=== PATIENT | male | born 1990 | race Caucasian/White ===

== ENCOUNTER → 2022-06-02 11:11 | Outpatient (CLI) | payer BC, SELFPAY ==
[2022-06-02 12:10] LABS: COVID-19 CEPHEID 4-PLEX PCR Negative (Negative); Influenza A - CEPHEID Flu A NEGATIVE (NEGATIVE); Influenza B - CEPHEID Flu B NEGATIVE (NEGATIVE); Respiratory Syncytial Virus Negative (Negative)
== END ==
PROVIDERS: Visit Provider Student in an Organized Health Care Education/Training Program
DX: J06.9 Acute upper respiratory infection, unspecified (principal)
CPT/HCPCS: 0241U

== ENCOUNTER 2022-06-02 11:51 | Emergency (ER) | payer BC, SELFPAY ==
[2022-06-02] VITALS (8 sets, daily range): BP systolic 96–110; BP diastolic 58–68; PULSE 59–66; RESP 18; TEMP 36.6; O2SAT 97–99; BMI 22.4
--- NOTE | 2022-06-02 12:03 | DI.RAD.S_ITS ---
PROCEDURE: XR CHEST 2V INDICATIONS: SOB TECHNIQUE: 2 views of the chest were acquired. COMPARISON: None. FINDINGS: Surgical changes and devices: None. Lungs and pleura: Lungs are clear. No pleural effusions or pneumothorax. Mediastinum: Mediastinal contours are normal. Heart size is normal. Bones and chest wall: No suspicious bony abnormalities. Soft tissues appear unremarkable. IMPRESSION: No acute cardiopulmonary findings. Dictated by: Melissa Gomez M.D. on 06/02/2022 at 13:24 Approved by: Melissa Gomez M.D. on 06/02/2022 at 13:24
[2022-06-02 12:14] LABS: Add Manual Diff / Slide Review NO; Basophils Absolute Auto 100 /uL (0-100); Basophils Percent Auto 0.5 % (0-2); Eosinophils Absolute Auto 200 /uL (0-450); Eosinophils Percent Auto 1.5 % (2-4); Hematocrit 42.2 % (41-53); Lymphocytes Absolute Auto 1600 /uL (1100-4500); Lymphocytes Percent Auto 12.5 % (25-40); Mean Corpuscular HGB Conc 33.2 % (30-36); Mean Corpuscular Hemoglobin 28.6 PG (26-34); Mean Corpuscular Volume 86.1 fL (80-100); Monocytes Absolute Auto 1300 /uL (0-900); Monocytes Percent Auto 10.2 % (3-14); Neutrophils Absolute Auto 9600 /uL (1500-7000); Neutrophils Percent Auto 75.3 % (50-75); Platelet Count 350 X10^3/uL (150-400); Red Cell Distribution Width 13.3 % (11.6-14.8); White Blood Cell Count 12.8 X10^3/uL (4.5-11.0)
[2022-06-02] MEDS: LACTATED RINGERS 1,000 ML 1000 ML IV ×2 (12:15→14:18)
[2022-06-02 12:30] LABS: Alanine Aminotransferase 16 IU/L (<50); Albumin 3.9 g/dL (3.5-5.0); Albumin Globulin Ratio 1.1 (1.0-2.8); Alkaline Phosphatase 44 U/L (38-126); Aspartate Aminotransferase 18 IU/L (17-59); BUN Creatinine Ratio 9.7 (6-22); Bilirubin Total 0.5 mg/dL (0.2-1.3); Blood Urea Nitrogen 7 mg/dL (9-20); Carbon Dioxide 25 mmol/L (22-32); Chloride 104 mmol/L (98-107); Estimated Glomerular Filt Rate > 60 mL/min (>60); Globulin 3.7 g/dL (1.7-4.1); Glucose 103 mg/dL (70-100); HEMOLYSIS < 15 (0-50); Lipase 111 U/L (23-300); Magnesium 1.8 mg/dL (1.6-2.3); Potassium 3.8 mmol/L (3.4-5.1); Sodium 139 mmol/L (137-145); Total Protein 7.6 g/dL (6.3-8.2)
--- NOTE | 2022-06-02 13:53 | ED.GENADULT ---
HPI - General Adult General Chief complaint: Upper Respiratory Symptoms Stated complaint: sent by [facility] bad flu symptoms t-14 lightheaded Time Seen by Provider: 06/02/22 12:02 Source: patient Mode of arrival: Wheelchair History of Present Illness HPI narrative: 32-year-old male nonsmoker with noncontributory medical history presents at the request of the walk-in clinic after having presented earlier today for evaluation of about 2 weeks of ongoing cough which is occasionally productive of yellowish-greenish sputum. Multiple family members have had rather classic upper respiratory symptoms including nasal congestion and cough but all got better in a few days and he continues to be sick. He denies recent travel, history of blood clot or lower extremity pain or swelling. He denies any hemoptysis. When seen and evaluated at the walk-in clinic deep breath elicited cough and made him near syncopal. He was sent here for further evaluation. He denies nausea but admits to some decreased appetite. He is had no vomiting or diarrhea and denies urinary complaints such as dysuria, frequency or urgency. Related Data Previous Rx's Medication Instructions Recorded benzonatate 200 mg capsule 200 mg PO BID PRN cough #20 caps 06/02/22 doxycycline hyclate 100 mg tablet 100 mg PO BID #20 tabs 06/02/22 Allergies Allergy/AdvReac Type Severity Reaction Status Date / Time No Known Drug Allergies Allergy Unverified 06/02/22 11:20 Review of Systems Review of Systems Narrative: GENERAL: See HPI HEENT: Denies sinus pain, ear pain, sore throat, difficulty swallowing, dizziness. RESPIRATORY: See HPI CARDIOVASCULAR: Denies chest pain, palpitations, orthopnea, edema, GASTROINTESTINAL: Denies nausea, vomiting, abdominal pain, diarrhea, constipation, melena. : Denies dysuria, frequency, incontinence, hematuria, urinary retention. MUSCULOSKELETAL: denies weakness, joint pain, or bony pain SKIN: Denies rash, skin lesions, or other NEUROLOGIC: Denies weakness, headache, numbness, change in speech, confusion, seizures, incoordination. PSYCHIATRIC: No concerning psychosocial issues. 12 point review of systems is negative except for those stated above Patient History Social History Smoking Status: Never smoker Smoking Status: Never smoker alcohol intake frequency: 0-2 drinks per day Substance Use Type: does not use Exam Narrative Exam Narrative: GENERAL: [32] year old patient appears stated age. Well-developed patient, in mild distress. HEAD: Atraumatic. Normocephalic. EYES: Pupils equal round and reactive. Extraocular motions intact. No scleral icterus. No injection or drainage. ENT: Nose without bleeding, purulent drainage. Throat without erythema, tonsillar hypertrophy or exudate. Airway patent. NECK: Trachea midline. Non tender CARDIOVASCULAR: Regular rate and rhythm without murmurs, gallops, or rubs. RESPIRATORY: Clear to auscultation. Breath sounds equal bilaterally. No wheezes, rales, or rhonchi. Deep breath does elicit a rather harsh sounding cough, no increased work of breathing, use of accessories or hypoxemia GASTROINTESTINAL: Abdomen soft, non-tender, nondistended. EXTREMITIES: No edema or joint tenderness. BACK: Nontender without deformity or crepitance. No flank tenderness. NEURO: AOx3. SKIN: No rash or erythema of visible areas Initial Vital Signs Initial Vital Signs: Vital Signs Temperature 98 F 06/02/22 11:59 Pulse Rate 62 06/02/22 11:59 Respiratory Rate 18 06/02/22 11:59 Blood Pressure 96/58 L 06/02/22 11:59 Pulse Oximetry 97 06/02/22 11:59 Oxygen Delivery Method Room Air 06/02/22 11:59 Scores PERC Score Heart rate greater than or equal to 100 bpm: No Room Air O2 Sat less than 95%: No Unilateral leg swelling: No Recent trauma or surgery: No Hemoptysis: No Prior PE or DVT: No Hormone Use: No Wells' Criteria for PE Clinical signs and symptoms of DVT: No PE is #1 Dx or equally likely: No Heart rate > 100: No Immobilization at least 3 days or surg in previous 4 weeks: No History of PE or DVT: No Hemoptysis: No Malignancy w/Treatment within 6 months or palliative: No Wells' PE Score total: 0 Course Orders Ordered: ED Orders 06/02/22 12:03 XR chest 2V Stat Urinalysis and Microscopic Stat 06/02/22 12:05 Complete Blood Count AUTO DIFF Stat Comprehensive Metabolic Panel Stat Lactate (Lactic Acid) Stat Lipase Stat Magnesium Stat Lactated Ringer's (Lactated Ringers) 1,000 mls @ 1,000 mls/hr IV BOLUS ONE Stop: 06/02/22 15:12 Last Admin: 06/02/22 14:18 Dose: 1,000 mls/hr Documented By: CTS Discontinued Medications Albuterol (Albuterol Hfa Prepack) 1 box MISC SEEINSTR ONE Stop: 06/02/22 14:24 Last Admin: 06/02/22 14:31 Dose: 1 box Documented By: KOLBY Lactated Ringer's (Lactated Ringers) 1,000 mls @ 1,000 mls/hr IV BOLUS ONE Stop: 06/02/22 13:01 Last Infusion: 06/02/22 13:23 Dose: 0 mls/hr Documented By: Admin: 06/02/22 12:15 Dose: 1,000 mls/hr Documented By: MO Reevaluation(s) Reevaluation #1: Patient is feeling better with 1 L of fluid, does suggest that he would like another. Vital Signs Vital signs: Vital Signs - 8 hr 06/02/22 11:59 06/02/22 12:22 06/02/22 12:30 Temperature 98 F Pulse Rate 62 63 Respiratory Rate 18 Blood Pressure 96/58 L 96/62 Pulse Oximetry 97 98 Oxygen Delivery Method Room Air 06/02/22 12:30 06/02/22 13:02 06/02/22 13:22 Temperature Pulse Rate 63 61 Respiratory Rate Blood Pressure 108/66 Pulse Oximetry 98 98 Oxygen Delivery Method Room Air Room Air 06/02/22 13:22 06/02/22 13:30 06/02/22 13:30 Temperature Pulse Rate 66 59 L Respiratory Rate 18 Blood Pressure 106/64 Pulse Oximetry 99 99 Oxygen Delivery Method Room Air 06/02/22 14:00 06/02/22 14:00 Temperature Pulse Rate 65 Respiratory Rate Blood Pressure 110/68 Pulse Oximetry 99 Oxygen Delivery Method Medical Decision Making Lab Data 06/02/22 12:05 06/02/22 12:05 Labs: Lab Results 06/02/22 06/02/22 06/02/22 Range/Units 12:05 12:05 12:05 WBC 12.8 H (4.5-11.0) X10^3/uL RBC 4.90 (4.5-5.9) X10^6/uL Hgb 14.0 (13.5-17.5) g/dL Hct 42.2 (41-53) % MCV 86.1 (80-100) fL MCH 28.6 (26-34) PG MCHC 33.2 (30-36) % RDW 13.3 (11.6-14.8) % Plt Count 350 (150-400) X10^3/uL Neut % (Auto) 75.3 H (50-75) % Lymph % (Auto) 12.5 L (25-40) % [place] % (Auto) 10.2 (3-14) % Eos % (Auto) 1.5 L (2-4) % Baso % (Auto) 0.5 (0-2) % Neut # (Auto) 9600 H (5027-8433) /uL Lymph # (Auto) 1600 (4047-6383) /uL [place] # (Auto) 1300 H (0-900) /uL Eos # (Auto) 200 (0-450) /uL Baso # (Auto) 100 (0-100) /uL Sodium 139 (137-145) mmol/L Potassium 3.8 (3.4-5.1) mmol/L Chloride 104 (98-107) mmol/L Carbon Dioxide 25 (22-32) mmol/L BUN 7 L (9-20) mg/dL Creatinine 0.72 (0.66-1.25) mg/dL Estimated GFR > 60 (>60) mL/min BUN/Creatinine Ratio 9.7 (6-22) Glucose 103 H (70-100) mg/dL Lactate 1.0 (0.7-2.1) mmol/L Calcium 9.0 (8.4-10.2) mg/dL Magnesium 1.8 (1.6-2.3) mg/dL Total Bilirubin 0.5 (0.2-1.3) mg/dL AST 18 (17-59) IU/L ALT 16 (<50) IU/L Alkaline Phosphatase 44 (38-126) U/L Total Protein 7.6 (6.3-8.2) g/dL Albumin 3.9 (3.5-5.0) g/dL Globulin 3.7 (1.7-4.1) g/dL Albumin/Globulin Ratio 1.1 (1.0-2.8) Lipase 111 (23-300) U/L MDM Narrative Additional Information: CC: 32-year-old otherwise healthy male with 2 weeks of upper respiratory complaints Complicating co-morbidities: None known Data collected from: Patient Medical records reviewed: Prior notes reviewed in our EMR Differential considered, but not limited to: Atypical pneumonia, pneumonia, pulmonary embolism, COVID, flu, RSV versus other Exam documented above, pertinent findings include: No increased work of breathing, deep breath illicits cough but no obvious abnormal lung sounds, no hypoxemia. Heart rate regular, abdomen soft Lab Test results independently reviewed as above. Pertinent findings: Slight leukocytosis with very minimal relative left shift, electrolytes and renal function within normal Independently reviewed EKG as above Imaging studies independently reviewed: Chest x-ray without acute process Scores Used: WELLS and PERC negative Treatments: Fluids Re-evaluations: Patient improved after the above Discussion: Patient with reassuring history and physical. Excellent improvement with above stated therapies. Respiratory panel, labs, CXR, and response to therapies are reassuring. Vitals greatly improved, patient feeling better. No indication for further workup or hospitalization Disposition: see below, along with detailed discharge instructions that have been reviewed with patient as well as indications for ED re-evaluation and additional outpatient follow up Discharge Plan Departure Patient Disposition: Home Clinical Impression: Atypical pneumonia Instructions: DI for Atypical Pneumonia Activity Restrictions/Additional Instructions: *You have been diagnosed with [atypical pneumonia. As we discussed your viral panel, chest x-ray and lab work are largely very reassuring. There are no specific or significant abnormalities.] *What to do: *Please continue to take your regular medications as directed. [ x] New medication prescriptions sent to your pharmacy: [[facility] ] [ ] New medication written as a paper prescription [ ] No new medications given *Please follow up with your primary care provider in 2-3 days, call for an appointment. Let them know you were seen in the Emergency Department and that we ask that you be seen in follow up. We will electronically transmit a record of today's note if your PCP is in our system *If you do not have a primary care provider please contact the [facility] Resource line at [phone]. They will ask some questions about your medical history and help get you set up with a doctor in the community. *Return to Emergency Department if you should have any new, worsening or concerning symptoms, such as [fever greater than 101 F, shaking chills, worsening pain, persistent vomiting or other bothersome symptoms] Prescriptions: New benzonatate 200 mg capsule 200 mg PO BID PRN (Reason: cough) Qty: 20 0RF doxycycline hyclate 100 mg tablet 100 mg PO BID Qty: 20 0RF Referrals: Miscellaneous,Doctor, MD [Primary Care Provider] - Stand Alone Forms: Patient Portal/API
[2022-06-02] MEDS: ALBUTEROL HFA PREPACK 1 BOX MISC (14:31)
--- NOTE | 2022-06-02 15:02 | PC.NURSE ---
Pt stated that he felt better upon discharge. No acute distress noted.
== END 2022-06-02 15:04 | disposition home or self-care (01) ==
PROVIDERS: Emergency Provider Emergency Medicine
DX: J18.9 Pneumonia, unspecified organism (principal); J06.9 Acute upper respiratory infection, unspecified
CPT/HCPCS: 0241U; 36415; 71046; 80053; 83605; 83690; 83735; 85025; 99284

== ENCOUNTER 2025-01-10 23:39 | Emergency (ER) | payer BC, SELFPAY ==
[2025-01-11 00:16] VITALS: BMI 22.4
--- NOTE | 2025-01-11 01:38 | DI.RAD.S_ITS ---
PROCEDURE: XR FINGER LT MIN 2V INDICATIONS: small finger injury TECHNIQUE: 2 views of the 5th finger(s) acquired. COMPARISON: None. FINDINGS: Bones: Mildly displaced distal phalanx tuft fracture. Soft tissues: No suspicious soft tissue calcifications. Soft tissue swelling at the distal aspect of the 5th digit IMPRESSION: Displaced distal phalanx tuft fracture with surrounding soft tissue swelling Approved by: Madeleine Ghotra M.D.,Ph.D. on 01/11/2025 at 2:11
[2025-01-11] MEDS: ACETAMINOPHEN 325 MG TABLET PO (01:46)
[2025-01-11] MEDS: IBUPROFEN 400 MG TABLET PO (01:47)
[2025-01-11 04:05] VITALS: BP 106/61; PULSE 66; RESP 15; TEMP 36.5; O2SAT 100
--- NOTE | 2025-01-11 04:06 | ED.WOUNDLAC ---
HPI - Wound/Laceration General Chief Complaint: Wound/Laceration Stated Complaint: L Pinky Laceration Time Seen by Provider: 01/10/25 23:51 Source: patient Mode of arrival: Ambulatory History of Present Illness HPI narrative: Otherwise healthy 34-year-old gentleman was playing hockey this evening when his stick came up and hit the tip of his left small finger, he did have hockey gloves on however suffered significant blunt force laceration to the tip of the left small finger. The fingernail has currently been avulsed and the wound is still oozing. No other complaints at this time Related Data Previous Rx's ?Medication ?Instructions ?Recorded cephalexin 500 mg capsule 500 mg PO TID #15 caps 01/11/25 Allergies Allergy/AdvReac Type Severity Reaction Status Date / Time No Known Drug Allergies Allergy Unverified 03/09/23 08:58 Review of Systems Review of Systems Narrative: Pertinent positive and negative findings as per HPI Patient History alcohol intake frequency: 0-2 drinks per day Exam Initial Vital Signs Initial Vital Signs: Vital Signs Oxygen Delivery Method Room Air 01/11/25 00:16 General: Alert appropriate in no acute distress Respiratory: Able to speak in full sentences, no obvious respiratory distress Skin: No obvious rashes, warm and dry Neurologic: Grossly intact no obvious asymmetries or abnormalities Psych: appropriate insight and affect, cooperative Extremity: Left small finger has a stellate type lesion to the fingertip that extends to the distal phalanx, has avulsed the nail but not damaged the nail bed. He does have sensation to the tip of his finger. There are no tendons involved Procedures Laceration Repair Left small finger: Time of procedure: 04:08 Site: hand Side (If applicable): left Size (cm): 4 Description: stellate, flap and irregular Depth: involves muscle layer Local Anesthetic: lidocaine 1% Amount of anesthesia used (mL): 4 Pre-repair: wound explored and irrigated extensively (Fracture to the distal phalanx ) Skin layer closed with: nylon Skin layer suture size: 4-0 Number of sutures: 6 Technique: simple, interrupted and other Subcutaneous layer closed with: vicryl Subcutaneous layer suture size: 4-0 Number of sutures: 2 Technique: other (The avulsed fingernail was retained only by paronychial skin. The nail is removed.) Course Orders Ordered: ED Orders 01/11/25 01:38 XR finger LT min 2V Stat Discontinued Medications Acetaminophen (Acetaminophen 325 Mg Tablet) 325 mg PO NOW ONE Stop: 01/11/25 01:39 Last Admin: 01/11/25 01:46 Dose: 325 mg Documented By: DAREK Cephalexin HCl (Cephalexin 250 Mg Capsule) 500 mg PO NOW ONE Stop: 01/11/25 03:04 Last Admin: 01/11/25 03:20 Dose: 500 mg Documented By: DAREK Ibuprofen (Ibuprofen 400 Mg Tablet) 400 mg PO NOW ONE Stop: 01/11/25 01:39 Last Admin: 01/11/25 01:47 Dose: 400 mg Documented By: DAREK Vital Signs Vital signs: Vital Signs - 8 hr 01/11/25 00:16 01/11/25 04:05 Temperature 97.7 F Pulse Rate 66 Respiratory Rate 15 Blood Pressure 106/61 Pulse Oximetry 100 Oxygen Delivery Method Room Air Room Air MDM - Wound/Laceration MDM Narrative Medical decision making narrative: 34-year-old gentleman with hockey stick to the tip of his left small finger with stellate lesion involving the distal portion of the phalanx and avulsion of the nail appreciated. Complex repair with Vicryl to reapproximate the finger pad and simple interrupted to reapproximate further edges of the wound. The nail was already avulsed was removed. The nail bed did not seem to be significantly injured. Patient is up-to-date on tetanus X-ray does show a distal tuft fracture making this technically an open fracture He is placed on Keflex for 5 days, dressing is covered, finger caught is placed over the edge for protection. Recommended suture removal in 10 days. Clearly reviewed signs and symptoms of infection and reasons to return to the emergency department Discharge Plan Departure Patient Disposition: Home Clinical Impression: Laceration Instructions: DI for Laceration Repair Activity Restrictions/Additional Instructions: Thank you for coming in tonight You did an amazing job on the tip of your small finger. There are a couple of stitches deep inside to hold the fingertip together and then the stitches you can see on the outside to hold the edges together. The nail bed itself, the living area of the nail, does not appear to be significantly damaged so I do suspect that the nail will grow back normally. With the cut and the tip of your bone involved, this is technically an open fracture. Please do complete 5 days of antibiotics, Keflex prescription was electronically transmitted to Jessica paulson Using 400 mg of ibuprofen (2 [id number] pills) and 1 Tylenol every 6 hours can be very helpful in controlling pain. You can use the splint over the tip of your finger to keep it protected as long as in his tender. Need to keep a Band-Aid over it until sutures removed. Sutures should be able to be removed on or about January 21. If you have increasing pain, redness, drainage or new symptoms you do need to be seen and re-evaluated Prescriptions: New cephalexin 500 mg capsule 500 mg PO TID Qty: 15 0RF Stand Alone Forms: Patient Portal/API
== END 2025-01-11 04:18 | disposition home or self-care (01) ==
PROVIDERS: Emergency Provider Emergency Medicine
DX: S61.217A Laceration without foreign body of left little finger without damage to nail, initial encounter (principal); X58.XXXA Exposure to other specified factors, initial encounter
CPT/HCPCS: 12042; 73140; 99283